=== PATIENT | female | born 1995 | race Caucasian/White ===

== ENCOUNTER 2017-01-21 10:31 | Emergency (ER) | payer BC ==
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
[2017-01-21 11:03] LABS: APPEARANCE,URINE CLOUDY; BILIRUBIN,URINE NEGATIVE (NEGATIVE); GLUCOSE, URINE NEGATIVE (NEGATIVE); KETONES,URINE NEGATIVE (NEGATIVE); LEUKOCYTE ESTERASE,URINE SMALL (NEGATIVE); NITRITE,URINE NEGATIVE (NEGATIVE); PROTEIN,URINE 30 mg/dL (NEGATIVE); URINE SPECIFIC GRAVITY 1.019; UROBILINOGEN,URINE NEGATIVE mg/dL (<2.0)
[2017-01-21 11:12] VITALS: BP 142/123
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
== END 2017-01-21 12:15 | disposition home or self-care (01) ==
LOC: ER 10:31
DX: T14.8 Other injury of unspecified body region (principal); S00.12XA Contusion of left eyelid and periocular area, initial encounter; S00.03XA Contusion of scalp, initial encounter; S20.02XA Contusion of left breast, initial encounter; S40.022A Contusion of left upper arm, initial encounter; S40.021A Contusion of right upper arm, initial encounter; S80.11XA Contusion of right lower leg, initial encounter; S80.12XA Contusion of left lower leg, initial encounter; Y04.2XXA Assault by strike against or bumped into by another person, initial encounter; R11.2 Nausea with vomiting, unspecified; M54.2 Cervicalgia; R42 Dizziness and giddiness; R22.0 Localized swelling, mass and lump, head; F17.200 Nicotine dependence, unspecified, uncomplicated; J45.909 Unspecified asthma, uncomplicated; R10.816 Epigastric abdominal tenderness; F10.20 Alcohol dependence, uncomplicated
CPT/HCPCS: 99283; 99284; 96361; 96374; 96375; 36415; 80307 ×3; 83690; 85025; 85610; 81025; 80053; 81001; 70450; 72125; J2550; J2405; J7030

== ENCOUNTER 2017-01-21 13:43 | Emergency (ER) | payer BC ==
[2017-01-21] MEDS ORDERED: ONDANSETRON HCL INJ/PF 4 MG/2 ML SDV ONE (14:06)
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
[2017-01-21] MEDS ORDERED: NORMAL SALINE 1000 ML 1,000 ML IV ONE (14:33)
[2017-01-21] MEDS ORDERED: PROMETHAZINE HCL INJ 25 MG/1 ML VIAL IV ONE (14:33)
[2017-01-21 14:43] LABS: ABSOLUTE LYMPHOCYTES (AUTO) 1.9 10^3/uL (0.5-4.7); ABSOLUTE MONOCYTES (AUTO) 0.6 10^3/uL (0.1-1.4); ABSOLUTE NEUT (AUTO) 8.7 10^3/uL (1.7-8.2); BASOPHILS % (AUTO) 0.4 % (0-2); HEMATOCRIT 41.4 % (36.0-47.0); HEMOGLOBIN 13.8 g/dL (12.0-15.5); MEAN CORPUSCULAR HEMOGLOBIN 30.9 pg (27.0-33.4); MEAN CORPUSCULAR HGB CONC 33.3 g/dL (32.0-36.0); MEAN CORPUSCULAR VOLUME 93 fl (80-97); MONOCYTES % (AUTO) 5.5 % (3-13); RED BLOOD COUNT 4.46 10^6/uL (3.72-5.28); RED CELL DISTRIBUTION WIDTH 13.7 % (11.5-14.0); SEGMENTED NEUTROPHILS % (AUTO) 77.1 % (42-78); WHITE BLOOD COUNT 11.2 10^3/uL (4.0-10.5)
[2017-01-21 14:49] LABS: PROTHROMBIN TIME 13.5 SEC (11.4-15.4)
[2017-01-21 15:37] LABS: ALANINE AMINOTRANSFERASE 32 U/L (9-52); ALBUMIN 4.7 g/dL (3.5-5.0); ALKALINE PHOSPHATASE 75 U/L (38-126); ANION GAP 12 (5-19); ASPARTATE AMINO TRANSFERASE 40 U/L (14-36); BILIRUBIN,TOTAL 0.7 mg/dL (0.2-1.3); BLOOD UREA NITROGEN 14 mg/dL (7-20); CALCIUM 9.5 mg/dL (8.4-10.2); CARBON DIOXIDE 25 mmol/L (22-30); CHLORIDE 107 mmol/L (98-107); CREATININE RESULT 0.47 mg/dL (0.52-1.25); GLUCOSE 91 mg/dL (75-110); LIPASE 35.9 U/L (23-300); POTASSIUM 4.4 mmol/L (3.6-5.0); SODIUM 143.6 mmol/L (137-145); TOTAL PROTEIN 7.2 g/dL (6.3-8.2)
[2017-01-21 15:38] LABS: ALCOHOL < 10 mg/dL (NONE DETECTED)
[2017-01-21 15:53] LABS: APPEARANCE,URINE SLIGHTLY-CLOUDY; BILIRUBIN,URINE NEGATIVE (NEGATIVE); GLUCOSE, URINE NEGATIVE (NEGATIVE); KETONES,URINE TRACE mg/dL (NEGATIVE); LEUKOCYTE ESTERASE,URINE NEGATIVE (NEGATIVE); NITRITE,URINE NEGATIVE (NEGATIVE); PROTEIN,URINE 30 mg/dL (NEGATIVE); URINE SPECIFIC GRAVITY 1.024; UROBILINOGEN,URINE NEGATIVE mg/dL (<2.0)
[2017-01-21 17:30] VITALS: BP 102/59
== END 2017-01-21 17:00 | disposition home or self-care (01) ==
LOC: ER 13:43
DX: K92.0 Hematemesis (principal); F10.20 Alcohol dependence, uncomplicated; R10.816 Epigastric abdominal tenderness; J45.909 Unspecified asthma, uncomplicated
CPT/HCPCS: 99283; 96361; 96374; 96375; 36415; 80307 ×3; 83690; 85025; 85610; 81025; 80053; 81001; J2550; J2405; J7030